=== PATIENT | female | born 1975 | race Caucasian/White ===

== ENCOUNTER 2016-10-24 14:37 | Emergency (ER) | payer MEDICAID, MEDICARE ==
[~2016-10-24] VITALS: Ht 152.4 cm; Wt 106.1 kg
[2016-10-24 15:26] LABS: KETONES,URINE Negative (NEGATIVE); LEUKOCYTE ESTERASE ,URINE Negative (NEGATIVE); PH,URINE 5.5 (5.0-8.0)
[2016-10-24 15:30] LABS: ADD UA MICROSCOPIC YES
[2016-10-24 15:33] LABS: BASOPHILS # (AUTO) 0.1 /CMM (0.0-0.2); BASOPHILS % (AUTO) 1.4 % (0.0-2.0); DIFF TOTAL % 100 %; EOSINOPHILS # (AUTO) 0.3 /CMM (0.0-0.7); EOSINOPHILS % (AUTO) 2.8 % (0.0-6.0); HEMATOCRIT 41 % (33-45); HEMOGLOBIN 13.3 g/dL (11.5-14.8); LYMPHOCYTES % (AUTO) 41.6 % (20.0-44.0); MEAN CORPUSCULAR HEMOGLOBIN 29 PG (26.0-33.0); MEAN CORPUSCULAR HGB CONC 33 g/dl (31.0-36.0); MEAN CORPUSCULAR VOLUME 88 fL (82-100); MONOCYTES # (AUTO) 0.6 /CMM (0.1-1.30); MONOCYTES % (AUTO) 5.8 % (2.0-12.0); NEUTROPHILS # (AUTO) 4.7 /CMM (1.8-8.9); NEUTROPHILS % (AUTO) 48.4 % (43.0-81.0); PLATELET COUNT (AUTO) 258 /CMM (150-450); RED BLOOD CELL COUNT(AUTO) 4.64 MIL/uL (4.0-5.2); WHITE BLOOD COUNT (AUTO) 9.7 K/uL (4.3-11.0)
[2016-10-24 15:36] LABS: CREATININE 0.9 mg/dL (0.6-1.3); POTASSIUM 3.9 mmol/L (3.5-5.1)
[2016-10-24 15:38] LABS: ADD URINE CULTURE NO; RBC,URINE 0-2 /HPF (0-2); WBC,URINE 0-2 /HPF (0-3)
[2016-10-24 15:39] LABS: INR 0.97 (0.87-1.13); PROTHROMBIN TIME 10.2 SECS (9.5-12.7)
[2016-10-24 15:42] LABS: BILIRUBIN,DIRECT 0.1 mg/dL (0.0-0.2); BILIRUBIN,TOTAL 0.3 mg/dL (0.2-1.0); CALCIUM, SERUM 8.5 mg/dL (8.5-10.1); INDIRECT BILIRUBIN 0.2 mg/dL (0.0-1.1); SALICYLATE 1.7 mg/dL (2.8-20.0)
[2016-10-24 15:44] LABS: CANNABINOID, URINE NEGATIVE (NEGATIVE); PHENCYCLIDINE SCREEN,URINE NEGATIVE (NEGATIVE)
[2016-10-24 21:00] VITALS: BP 151/77
[2016-10-24] MEDS ORDERED: diphenhydrAMINE HCL 50 MG/ML VIAL IM ONE (21:00)
[2016-10-24] MEDS ORDERED: HALOPERIDOL LACTATE INJ 5 MG/ML VIAL IM ONE (21:00)
[2016-10-24] MEDS ORDERED: LORAZEPAM INJ 2 MG/ML VIAL IM ONE (21:00)
[2016-10-24] MEDS ORDERED: diphenhydrAMINE HCL 50 MG/ML VIAL ONE (21:01)
[2016-10-24] MEDS ORDERED: HALOPERIDOL LACTATE INJ 5 MG/ML VIAL ONE (21:01)
[2016-10-24] MEDS ORDERED: LORAZEPAM INJ 2 MG/ML VIAL ONE (21:02)
== END 2016-10-24 23:30 ==
LOC: ER 14:39
DX: F32.9 Major depressive disorder, single episode, unspecified (principal); F10.10 Alcohol abuse, uncomplicated; F31.9 Bipolar disorder, unspecified; F41.0 Panic disorder [episodic paroxysmal anxiety]; R79.1 Abnormal coagulation profile
CPT/HCPCS: 36415; 80048; 80076; 80305; 81001; 84703; 85025; 85730; 96372 ×3; 99285; A4606; G0480; G0481; G0482; J1200; J1630; J2060; 81000-TC; G6038-TC; G6039-TC; G6040-TC; Z7610

== ENCOUNTER 2017-02-03 08:39 | Emergency (ER) | payer MEDICARE, MEDICAID ==
[~2017-02-03] VITALS: Ht 157.5 cm; Wt 65.8 kg
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
[2017-02-03] MEDS ORDERED: IV NS 0.9% 1,000 ML BAG IV ONE (09:30)
[2017-02-03] MEDS ORDERED: IV NS 0.9% 1,000 ML ONE (09:37)
--- NOTE | 2017-02-03 09:51 | NUR ---
Iv accessed to lac 20. iv ns started
[2017-02-03 09:59] LABS: CALCIUM, SERUM 8.7 mg/dL (8.5-10.1); CREATININE 0.7 mg/dL (0.6-1.3)
[2017-02-03 10:00] LABS: BASOPHILS # (AUTO) 0.2 /CMM (0.0-0.2); BASOPHILS % (AUTO) 2.5 % (0.0-2.0); EOSINOPHILS # (AUTO) 0.1 /CMM (0.0-0.7); EOSINOPHILS % (AUTO) 1.3 % (0.0-6.0); HEMATOCRIT 42 % (33-45); HEMOGLOBIN 13.5 g/dL (11.5-14.8); LYMPHOCYTES # (AUTO) 2.1 /CMM (0.8-4.8); LYMPHOCYTES % (AUTO) 22.9 % (20.0-44.0); MEAN CORPUSCULAR HEMOGLOBIN 28 PG (26.0-33.0); MEAN CORPUSCULAR HGB CONC 32 g/dl (31.0-36.0); MEAN CORPUSCULAR VOLUME 87 fL (82-100); MONOCYTES # (AUTO) 0.5 /CMM (0.1-1.30); MONOCYTES % (AUTO) 5.6 % (2.0-12.0); NEUTROPHILS # (AUTO) 6.1 /CMM (1.8-8.9); NEUTROPHILS % (AUTO) 67.7 % (43.0-81.0); PLATELET COUNT (AUTO) 320 /CMM (150-450); RDW COEFFICIENT OF VARIATION 13.9 (11.5-15.0); RED BLOOD CELL COUNT(AUTO) 4.81 MIL/uL (4.0-5.2)
[2017-02-03 10:06] LABS: ALBUMIN 3.7 g/dL (3.4-5.0); BILIRUBIN,DIRECT 0.1 mg/dL (0.0-0.2); BILIRUBIN,TOTAL 0.2 mg/dL (0.2-1.0); SALICYLATE 2.5 mg/dL (2.8-20.0); TOTAL PROTEIN, SERUM 7.4 g/dL (6.4-8.2)
[2017-02-03 10:24] LABS: CANNABINOID, URINE NEGATIVE (NEGATIVE); PHENCYCLIDINE SCREEN,URINE NEGATIVE (NEGATIVE)
--- NOTE | 2017-02-03 10:30 | NUR ---
Urine sample sent
--- NOTE | 2017-02-03 13:10 | NUR ---
Suzanne Rn at
--- NOTE | 2017-02-03 13:22 | NUR ---
CALLED [facility] FOR TRANSPORT TO [facility], ETA 45 MIN
--- NOTE | 2017-02-03 13:34 | NUR ---
Report given to nurse [place] for change of condition
--- NOTE | 2017-02-03 13:42 | NUR ---
Patient is resting comfortably in bed with eyes closed. Easily aroused. VSS
[2017-02-03 13:43] VITALS: BP 124/78
--- NOTE | 2017-02-03 14:16 | NUR ---
Patient was picked up by two ems. fannys
== END 2017-02-03 14:17 ==
LOC: ER 08:41
DX: T65.92XA Toxic effect of unspecified substance, intentional self-harm, initial encounter (principal); F31.9 Bipolar disorder, unspecified; F32.9 Major depressive disorder, single episode, unspecified; Z59.0 Homelessness; Y92.9 Unspecified place or not applicable
CPT/HCPCS: 36415; 80048-TC; 80076-TC; 80305; 84703-TC; 85025-TC; A4606; G0480; G6039-TC; J7030; Z7610

== ENCOUNTER 2017-03-18 12:38 | Emergency (ER) | payer MEDICARE, MEDICAID ==
[~2017-03-18] VITALS: Ht 172.7 cm; Wt 83.9 kg
[~2017-03-18 12:38] MED LIST: CLON1TAB23; FLUO20CA36; GABA600T2; LITH600C; TRAZ300T13
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
[2017-03-18 12:58] LABS: BASOPHILS % (AUTO) 0.6 % (0.0-2.0); EOSINOPHILS % (AUTO) 0.5 % (0.0-6.0); HEMATOCRIT 38 % (33-45); HEMOGLOBIN 12.3 g/dL (11.5-14.8); LYMPHOCYTES # (AUTO) 1.6 /CMM (0.8-4.8); LYMPHOCYTES % (AUTO) 19.8 % (20.0-44.0); MEAN CORPUSCULAR HEMOGLOBIN 29 PG (26.0-33.0); MEAN CORPUSCULAR HGB CONC 32 g/dl (31.0-36.0); MEAN CORPUSCULAR VOLUME 88 fL (82-100); MONOCYTES # (AUTO) 0.4 /CMM (0.1-1.30); MONOCYTES % (AUTO) 4.9 % (2.0-12.0); NEUTROPHILS # (AUTO) 6.2 /CMM (1.8-8.9); NEUTROPHILS % (AUTO) 74.2 % (43.0-81.0); PLATELET COUNT (AUTO) 300 /CMM (150-450); RDW COEFFICIENT OF VARIATION 15.3 (11.5-15.0); RED BLOOD CELL COUNT(AUTO) 4.31 MIL/uL (4.0-5.2); WHITE BLOOD COUNT (AUTO) 8.2 K/uL (4.3-11.0)
[2017-03-18 13:06] LABS: CREATININE 0.8 mg/dL (0.6-1.3); POTASSIUM 3.7 mmol/L (3.5-5.1)
[2017-03-18 13:18] LABS: ALBUMIN 3.8 g/dL (3.4-5.0); BILIRUBIN,DIRECT 0.1 mg/dL (0.0-0.2); BILIRUBIN,TOTAL 0.4 mg/dL (0.2-1.0); SALICYLATE 1.8 mg/dL (2.8-20.0); TOTAL PROTEIN, SERUM 7.3 g/dL (6.4-8.2)
--- NOTE | 2017-03-18 13:45 | NUR ---
PT AMBULATEDTO RESTROOM WITH STEADY GAIT.
[2017-03-18 13:52] LABS: APPEARANCE,URINE Cloudy (CLEAR); BILIRUBIN,URINE Negative (NEGATIVE); BLOOD, URINE Moderate Ery/uL (NEGATIVE); COLOR,URINE Yellow (YELLOW); KETONES,URINE Trace (NEGATIVE); LEUKOCYTE ESTERASE ,URINE Large (NEGATIVE); NITRITE, URINE Positive (NEGATIVE); PH,URINE 5.5 (5.0-8.0); PROTEIN,URINE Negative (NEGATIVE); UGLUCOSE Negative (NEGATIVE); UROBILINOGEN,URINE 0.2 EU/dL (0.2)
[2017-03-18 14:08] LABS: SQUAMOUS EPITHELIAL CELL,UR Few /HPF (None Seen)
[2017-03-18 14:09] LABS: BACTERIA,URINE 1+ /HPF (None Seen); WBC,URINE 21-50 /HPF (0-3)
--- NOTE | 2017-03-18 14:33 | NUR ---
RESTING QUIETLY, NAD NOTED. CALLED FOR LUNCH TRAY.
[2017-03-18] MEDS ORDERED: IV NS 0.9% 1,000 ML ONE (15:03)
[2017-03-18] MEDS ORDERED: IV SET PRIMARY 1 EA INFUS.SET MC ONE ×2 (15:03→15:47)
[2017-03-18] MEDS: IV NS 0.9% 1,000 ML BAG IV ONE (15:22)
--- NOTE | 2017-03-18 15:23 | NUR ---
PT TRANSPORTED TO CT IN STABLE CONDITION
[2017-03-18] MEDS ORDERED: CEFTRIAXONE 1GM BAG (ER ONLY) 50 ML IV ONE (15:47)
[2017-03-18] MEDS: CEFTRIAXONE 1 G in IV D5W 50 ML IV STA (15:58)
--- NOTE | 2017-03-18 17:24 | NUR ---
RESTING QUIETLY, NAD NOTED, AMBULATORY WITH STEADY GAIT. PT DOES NOT APPEAR INTOXICATED AT THIS TIME BUT PT STATES "I HAVE A HIGH TOLERANCE"
[2017-03-18] MEDS ORDERED: LORAZEPAM 1 MG TABLET ONE (17:37)
[2017-03-18] MEDS: LORAZEPAM 1 MG TABLET PO ONE (17:46)
--- NOTE | 2017-03-18 17:46 | NUR ---
AMBULATORY, SPEAKING WITH FAMILY ON PHONE. PROVIDED WITH FOOD PER REQUEST.
--- NOTE | 2017-03-18 18:35 | NUR ---
pt refusing to listen to staff regardingg staying in bed and she is attempting to help other patients eat their dinner. placed on 1 point restraint per PA for safety.
--- NOTE | 2017-03-18 22:09 | NUR ---
resting quietly. released from restraint. ambulatory with steady gait.
--- NOTE | 2017-03-18 23:37 | NUR ---
RESTING QUIETLY, NAD NOTED. VSS. ENDORSED TO WOODROW BURRIS RN FOR DENAE.
--- NOTE | 2017-03-19 00:38 | NUR ---
PT AMBULATORY WITH STEADY GAIT BACK AND FORTH WITH NO C/O. DENIES SI/HI. RESP EVEN AND UNLABORED. INFORMED AND AWAITING FAMILY TO PICK HER UP.
--- NOTE | 2017-03-19 01:16 | NUR ---
STILL AWAITING RIDE HOME. LEANNA SI/HI.
[2017-03-19 01:17] VITALS: BP 127/77
[2017-03-19] MEDS ORDERED: CHLORDIAZEPOXIDE HCL 25 MG CAPSULE ONE (01:24)
[2017-03-19] MEDS: CHLORDIAZEPOXIDE HCL 25 MG CAPSULE PO ONE (01:31)
--- NOTE | 2017-03-19 01:56 | NUR ---
Patient discharged to home in stable condition. Written and verbal after care instructions given. Patient verbalizes understanding of instruction. Ambulatory with a steady gait accompanied by s/o.
== END 2017-03-19 01:59 | disposition home or self-care (01) ==
LOC: ER 12:38
DX: R45.851 Suicidal ideations (principal); F32.9 Major depressive disorder, single episode, unspecified; S05.11XA Contusion of eyeball and orbital tissues, right eye, initial encounter; F31.9 Bipolar disorder, unspecified; F10.20 Alcohol dependence, uncomplicated; X58.XXXA Exposure to other specified factors, initial encounter; Y92.89 Other specified places as the place of occurrence of the external cause; Y93.89 Activity, other specified; Y99.8 Other external cause status
CPT/HCPCS: 36415; 70450; 80048; 80076; 80305; 80329; 81001; 84703; 85025; 87077; 87086; 87186; 96361; 96365; 99285; A4606; G0480 ×2; J0696; J7030; 81000-TC; G6039-TC; Z7610

== ENCOUNTER 2017-10-26 18:06 | Emergency (ER) | payer MEDICARE, MEDICAID ==
[~2017-10-26] VITALS: Ht 157.5 cm; Wt 99.8 kg
[2017-10-26 18:09] VITALS: BP 143/102
[2017-10-26] MEDS ORDERED: LORAZEPAM 1 MG TABLET ONE (18:29)
[2017-10-26] MEDS ORDERED: LORAZEPAM 1 MG TABLET PO ONE (18:30)
[2017-10-26] MEDS ORDERED: IV NS 0.9% 1,000 ML BAG IV ONE (18:30)
[2017-10-26] MEDS ORDERED: LORAZEPAM INJ 2 MG/ML VIAL IVP ONE (18:30)
== END 2017-10-26 19:27 | disposition home or self-care (01) ==
LOC: ER 18:07
DX: F10.239 Alcohol dependence with withdrawal, unspecified (principal); F31.9 Bipolar disorder, unspecified
CPT/HCPCS: A4606; Z7610

== ENCOUNTER 2018-02-19 22:23 | Emergency (ER) | payer BC, MEDICAID ==
[~2018-02-19] VITALS: Ht 157.5 cm; Wt 97.5 kg
--- NOTE | 2018-02-19 22:23 | NUR ---
BIB [facility] FOR TAKING CLONOPIN 10MG X 90 ABOUT AN HOUR AGO. PT STATES TRYING TO COMMIT SUICIDE "I WANT TO HURT MYSEFL". BP IS LOW BUT OTHERWISE VSS. A/OX2 WITH SOME SLURRED SPEACH. WILL CONTINUE TO MONITOR FOR ANY CHANGES DURING THE SHIFT.
--- NOTE | 2018-02-19 22:25 | NUR ---
ER AT BEDSIDE
[2018-02-19] MEDS ORDERED: FAMO20TA80 PO (22:30)
[2018-02-19] MEDS ORDERED: IV NS 0.9% 1,000 ML BAG IV ONE ×2 (22:30→23:30)
[2018-02-19] MEDS ORDERED: TRAZ-214 PO (22:30)
[2018-02-19] MEDS ORDERED: QUET200T PO (22:30)
[2018-02-19 22:50] LABS: BASOPHILS # (AUTO) 0.2 /CMM (0.0-0.2); BASOPHILS % (AUTO) 1.4 % (0.0-2.0); EOSINOPHILS % (AUTO) 1.8 % (0.0-6.0); HEMATOCRIT 35 % (33-45); HEMOGLOBIN 11.8 g/dL (11.5-14.8); LYMPHOCYTES # (AUTO) 4.6 /CMM (0.8-4.8); LYMPHOCYTES % (AUTO) 34.4 % (20.0-44.0); MEAN CORPUSCULAR HGB CONC 34 g/dl (31.0-36.0); MEAN CORPUSCULAR VOLUME 89 fL (82-100); MONOCYTES # (AUTO) 0.5 /CMM (0.1-1.30); MONOCYTES % (AUTO) 3.5 % (2.0-12.0); NEUTROPHILS # (AUTO) 7.9 /CMM (1.8-8.9); NEUTROPHILS % (AUTO) 58.9 % (43.0-81.0); PLATELET COUNT (AUTO) 360 /CMM (150-450); RDW COEFFICIENT OF VARIATION 15.9 (11.5-15.0); RED BLOOD CELL COUNT(AUTO) 3.96 MIL/uL (4.0-5.2); WHITE BLOOD COUNT (AUTO) 13.5 K/uL (4.3-11.0)
[2018-02-19 23:01] LABS: CALCIUM, SERUM 8.5 mg/dL (8.5-10.1); CREATININE 0.8 mg/dL (0.6-1.3); POTASSIUM 3.7 mmol/L (3.5-5.1)
[2018-02-19 23:12] LABS: ALBUMIN 3.4 g/dL (3.4-5.0); BILIRUBIN,DIRECT 0.1 mg/dL (0.0-0.2); BILIRUBIN,TOTAL 0.2 mg/dL (0.2-1.0); SALICYLATE 1.9 mg/dL (2.8-20.0); TOTAL PROTEIN, SERUM 7.4 g/dL (6.4-8.2)
--- NOTE | 2018-02-20 | NUR ---
PT IN STABLE CONDITION. WILL CONTINUE TO MONITOR FOR ANY CHANGES
--- NOTE | 2018-02-20 01:00 | NUR ---
HAVE ATTEMPTED TO ASK FOR PT TO URINATE IN ORDER TO GET URINE SAMPLE BUT REFUSES. ALSO ASKED IF AN IN AND OUT CATH WAS POSSIBEL BUT HE REFUSED WELL. WILL CONTINUE TO MONITOR FOR ANY CHANGES
--- NOTE | 2018-02-20 02:10 | NUR ---
PT IS IN STABLE CONDITION. ATTEMPTING TO PULL LINES BUT SPOKE WITH HER TO CONVINCE HER NOT TO
--- NOTE | 2018-02-20 04:55 | NUR ---
PT IS MORE AWAKE AT THIS TIME. ASKING HOW SHE GOT HERE. ALL INFORMATION WAS EXPLAINED AND PT WAS RE-0RIENTED
--- NOTE | 2018-02-20 05:26 | NUR ---
PT ABLE TO WALK TO RESTROOM TO GIVE URINE SAMPLE. WILL CONTINUE TO MONITOR FOR ANY CHANGES.
[2018-02-20 05:28] LABS: APPEARANCE,URINE CLEAR (CLEAR); BILIRUBIN,URINE NEGATIVE (NEGATIVE); BLOOD, URINE NEGATIVE Ery/uL (NEGATIVE); COLOR,URINE YELLOW (YELLOW); KETONES,URINE NEGATIVE (NEGATIVE); LEUKOCYTE ESTERASE ,URINE 1+ (NEGATIVE); NITRITE, URINE POSITIVE (NEGATIVE); PH,URINE 5.5 (5.0-8.0); PROTEIN,URINE NEGATIVE (NEGATIVE); UGLUCOSE NEGATIVE (NEGATIVE); UROBILINOGEN,URINE 0.2 EU/dL (0.2)
[2018-02-20 05:36] LABS: BACTERIA,URINE Moderate /HPF (None Seen); RBC,URINE 0-2 /HPF (0-2); SQUAMOUS EPITHELIAL CELL,UR Few /HPF (None Seen); WBC,URINE 21-50 /HPF (0-3)
--- NOTE | 2018-02-20 08:03 | NUR ---
Called [facility] for Psych Eval
[2018-02-20 10:14] VITALS: BP 105/68
--- NOTE | 2018-02-20 10:15 | NUR ---
Patient discharged to home in stable condition. Written and verbal after care instructions given. Patient verbalizes understanding of instruction.IV removed. Catheter intact and site benign. Pressure and 4x4 applied to site. No bleeding noted. denies si/hi. no further complaints. per pt wishes to wait in waiting room and mother will pick her up. ambulatory with steady gait.
== END 2018-02-20 10:14 | disposition home or self-care (01) ==
LOC: ER 22:26
DX: T42.4X2A Poisoning by benzodiazepines, intentional self-harm, initial encounter (principal); F10.129 Alcohol abuse with intoxication, unspecified; Y92.89 Other specified places as the place of occurrence of the external cause; F32.9 Major depressive disorder, single episode, unspecified
CPT/HCPCS: 36415; 80048-TC; 80076-TC; 80164-TC; 80305; 81000-TC; 82962-TC; 84703-TC; 85025-TC; 87086-TC; 87186-TC; A4606; G0480; J7030; Z7610

== ENCOUNTER 2018-06-24 14:29 | Emergency (ER) | payer BC, MEDICAID ==
[~2018-06-24] VITALS: Ht 170.2 cm; Wt 81.6 kg
[~2018-06-24 14:29] MED LIST changes: +FAMO20TA80 PO; +QUET200T PO; +TRAZ-214 PO
[2018-06-24 14:54] VITALS: BP 134/74
== END 2018-06-24 15:06 | disposition home or self-care (01) ==
LOC: ER 14:30
DX: Z76.0 Encounter for issue of repeat prescription (principal); L53.9 Erythematous condition, unspecified; F32.9 Major depressive disorder, single episode, unspecified; Z79.899 Other long term (current) drug therapy
CPT/HCPCS: A4606; Z7610

== ENCOUNTER 2018-07-25 15:55 | Emergency (ER) | payer BC, MEDICAID ==
[~2018-07-25] VITALS: Ht 157.5 cm; Wt 107.5 kg
--- NOTE | 2018-07-25 16:00 | NUR ---
PT AMBULATORY TO ER BED 09. PT APPEARS ANXIOUS, ADMITS TO DRINKING ALCOHOL SAYING " I HAD ALCOHOL TO CALM ME DOWN. PLACED ON MONITOR. STABLE VITALS AWAITING MD PARMAR.
--- NOTE | 2018-07-25 16:09 | NUR ---
pt called to triage, pt not in waiting room
--- NOTE | 2018-07-25 16:38 | NUR ---
THERESE CANTU AT BEDSIDE FOR EVAL.
[2018-07-25] MEDS ORDERED: clonazePAM 1 MG TABLET ONE (16:47)
[2018-07-25] MEDS ORDERED: clonazePAM 1 MG TABLET PO ONE (17:00)
--- NOTE | 2018-07-25 17:06 | NUR ---
Patient discharged to home in stable condition. Written and verbal after care instructions given. Patient verbalizes understanding of instruction.
[2018-07-25 17:07] VITALS: BP 132/70
== END 2018-07-25 17:07 | disposition home or self-care (01) ==
LOC: ER 15:58
DX: F41.9 Anxiety disorder, unspecified (principal); F32.9 Major depressive disorder, single episode, unspecified; Z79.899 Other long term (current) drug therapy
CPT/HCPCS: 99283; A4606; Z7610

== ENCOUNTER 2018-10-06 08:09 | Emergency (ER) | payer BC, MEDICAID ==
[~2018-10-06] VITALS: Ht 157.5 cm; Wt 97.5 kg
[2018-10-06 08:09] VITALS: BP 166/94
--- NOTE | 2018-10-06 08:45 | NUR ---
Patient discharged to home in stable condition. Written and verbal after care instructions given. Patient verbalizes understanding of instruction.
== END 2018-10-06 08:58 | disposition home or self-care (01) ==
LOC: ER 08:10
DX: F41.9 Anxiety disorder, unspecified (principal); F31.9 Bipolar disorder, unspecified; F10.10 Alcohol abuse, uncomplicated; Y90.9 Presence of alcohol in blood, level not specified; Z76.0 Encounter for issue of repeat prescription
CPT/HCPCS: A4606; Z7610

== ENCOUNTER 2019-11-06 17:14 | Emergency (ER) | payer MEDICARE, OTHER ==
[~2019-11-06] VITALS: Ht 152.4 cm; Wt 108.9 kg
[~2019-11-06 17:14] MED LIST changes: +GABA600T12; -GABA600T2; -TRAZ-214 PO; +TRAZ-257 PO
[2019-11-06 18:34] VITALS: BP 140/80
--- NOTE | 2019-11-06 18:38 | NUR ---
Patient discharged to home in stable condition. Written and verbal after care instructions given. Patient verbalizes understanding of instruction. Home with parent ambulatory gait even and steady
== END 2019-11-06 18:36 | disposition home or self-care (01) ==
LOC: ER 17:17
DX: F10.239 Alcohol dependence with withdrawal, unspecified (principal); F32.9 Major depressive disorder, single episode, unspecified; F41.9 Anxiety disorder, unspecified; Z79.899 Other long term (current) drug therapy; Z60.2 Problems related to living alone; Y90.9 Presence of alcohol in blood, level not specified